=== PATIENT | female | born 1965 | race Caucasian/White ===

== ENCOUNTER 2017-02-01 19:55 | Emergency (ER) | payer OTHER ==
[~2017-02-01] VITALS: Ht 157.5 cm; Wt 63.5 kg
--- NOTE | ~2017-02-01 | EKG ---
[place] [address] [facility] [place] [employer] [place] [address] ELECTROCARDIOGRAM REPORT Name: DON FOWLER Room #: GOYO Singleton#: [id number] Admission: 02/01/17 Attend Phys: Discharge: 02/01/17 Date of : 61 Report #: [id number] THIS REPORT FOR: //name// [facility] ED Test Date: 2017-02-01 Test Time: 20:15:53 Pat Name: DON FOWLER Department: Room: Gender: F [employer]omarg[employer] Maker: ignacio : 1965 Requested By: Tamara Calloway Order Number: [id number] MD: Javier Finn Measurements Intervals [place] Rate: 82 P: -16 RI: 129 QRS: 40 QRSD: 114 T: 79 QT: 410 QTc: 479 Interpretive Statements Sinus rhythm No significant abnormality No previous ECG available for comparison Electronically Signed On 02-02-2017 7:58:12 CDT by Javier Finn [email or web address] <ELECTRONICALLY SIGNED> By: Javier Finn MD, [facility] 02/02/17 0758 14 14 Javier Finn MD, FACC /EPI
[~2017-02-01 19:55] MED LIST: ALEVE220 MG; AZO URINARY P97.5 MG PO; BACTRIM DS TAB1 EACH PO; CIPRO500 MG PO; MACROBID 100 M100 M1 PO; NORCO 5-325 TA1 EACH PO; PHENAZOPYRIDIN200 M2 PO; PREDNISONE 20 M20 MG PO; PROVENTIL HFA6.7 G1 INH; ZOFRAN 4 MG ORAL4 MG PO; ZPAK PO
[2017-02-01 19:56] VITALS: BP 152/102
[2017-02-01 20:35] LABS: ABSOLUTE NEUTROPHILS 4.6 thou/uL (1.4-8.2); BASOPHILS 0.7 % (0.0-2.0); EOSINOPHILS 2.6 % (0.0-3.0); HEMOGLOBIN 13.5 gm/dL (12.0-15.0); LYMPHOCYTES 24.6 % (24.0-44.0); MANUAL DIFF NO; MCH 29.4 pg (26.0-34.0); MCHC 33.8 g/dL (28.0-37.0); MCV 86.9 fL (80.0-100.0); MONOCYTES 9.8 % (1.0-8.0); PLATELET COUNT 277 thou/uL (150-400); POLYS 62.3 % (36.0-66.0); WBC 7.4 thou/uL (4.0-11.0)
[2017-02-01] MEDS ORDERED: AMOXICILLIN875 MG PO (20:51)
[2017-02-01] MEDS ORDERED: DELTASONE20 MG PO (20:51)
[2017-02-01 20:55] LABS: ALBUMIN 3.4 g/dL (3.4-5.0); ALKALINE PHOSPHATASE 119 U/L (46-116); ANION GAP 11 mmol/L (7-16); BUN 12 mg/dL (7-18); CALCIUM 8.8 mg/dL (8.5-10.1); CHLORIDE 101 mmol/L (98-107); CO2 25 mmol/L (21-32); CREATININE 0.7 mg/dL (0.6-1.0); GLUCOSE 100 mg/dL (74-106); NT-PRO BRAIN NAT PEPTIDE 96 pg/mL (<300); POTASSIUM 3.8 mmol/L (3.5-5.1); SGOT 24 U/L (15-37); SGPT 24 U/L (30-65); SODIUM 137 mmol/L (136-145); TOTAL BILIRUBIN 0.3 mg/dL (<0.1-1.0); TOTAL PROTEIN 7.3 g/dL (6.4-8.2); TROPONIN-I < 0.04 ng/mL (<0.04-0.07)
== END 2017-02-01 21:15 | disposition home or self-care (01) ==
LOC: ER 19:55
PROVIDERS: Emergency Medicine
DX: J18.9 Pneumonia, unspecified organism (principal); I10 Essential (primary) hypertension; M19.90 Unspecified osteoarthritis, unspecified site; F17.210 Nicotine dependence, cigarettes, uncomplicated; Z88.6 Allergy status to analgesic agent; Z90.710 Acquired absence of both cervix and uterus

== ENCOUNTER 2018-01-19 17:06 | Emergency (ER) | payer OTHER ==
[~2018-01-19] VITALS: Ht 157.5 cm; Wt 61.2 kg
[~2018-01-19 17:06] MED LIST changes: +AMOXICILLIN875 MG PO; +DELTASONE20 MG PO
[2018-01-19] MEDS ORDERED: IBUPROFEN 600600 M1 PO (17:42)
[2018-07-04] MEDS ORDERED: PYRIDIUM200 MG PO (09:07)
[2018-07-04] MEDS ORDERED: BACTRIM DS TAB1 EACH PO (09:07)
[2018-07-04] MEDS ORDERED: TRAMADOL 50 MG50 MG PO (09:07)
== END 2018-01-19 18:07 | disposition home or self-care (01) ==
LOC: ER 17:06
DX: S20.211A Contusion of right front wall of thorax, initial encounter (principal); I10 Essential (primary) hypertension; M19.90 Unspecified osteoarthritis, unspecified site; F17.210 Nicotine dependence, cigarettes, uncomplicated; Z90.710 Acquired absence of both cervix and uterus; Z88.6 Allergy status to analgesic agent; W18.2XXA Fall in (into) shower or empty bathtub, initial encounter; Y93.89 Activity, other specified; Y92.091 Bathroom in other non-institutional residence as the place of occurrence of the external cause; Y99.8 Other external cause status

== ENCOUNTER 2018-01-28 12:46 | Emergency (ER) | payer OTHER ==
[~2018-01-28] VITALS: Ht 157.5 cm; Wt 61.2 kg
[~2018-01-28 12:46] MED LIST changes: +IBUPROFEN 600600 M1 PO
[2018-01-28 12:57] VITALS: BP 125/83
[2018-01-28] MEDS ORDERED: PROVENTIL HFA6.7 G1 INH (13:34)
[2018-01-28] MEDS ORDERED: NORCO 5-325 TA1 EACH PO (13:34)
== END 2018-01-28 13:49 | disposition home or self-care (01) ==
LOC: ER 12:46
DX: S20.211A Contusion of right front wall of thorax, initial encounter (principal); I10 Essential (primary) hypertension; M54.5 Low back pain; R05 Cough; R06.00 Dyspnea, unspecified; M19.90 Unspecified osteoarthritis, unspecified site; F17.210 Nicotine dependence, cigarettes, uncomplicated; Z88.6 Allergy status to analgesic agent; W18.2XXA Fall in (into) shower or empty bathtub, initial encounter; Y93.89 Activity, other specified; Y92.89 Other specified places as the place of occurrence of the external cause; Y99.8 Other external cause status